=== PATIENT | female | born 1995 | race African-American/Black ===

== ENCOUNTER 2020-04-02 07:21 | Emergency (ER) | payer MEDICAID ==
[~2020-04-02] VITALS: Ht 162.6 cm; Wt 100.0 kg
[2020-04-02] MEDS ORDERED: ALBU6.7H9 IH (07:48)
[2020-04-02] MEDS ORDERED: PREDNISONE 20MG TABLET PO STA (07:55)
[2020-04-02] MEDS: ALBUTEROL (0.083%) 2.5MG/3ML NEB HHN SCH ×3 (08:30→09:53)
[2020-04-02] MEDS ORDERED: MAGNESIUM 2 G PREMIX 50 ML IV ONE (09:30)
[2020-04-02] MEDS ORDERED: SODIUM CHLORIDE 0.9% 500 ML IV ONE (09:30)
[2020-04-02 10:58] LABS: BASOPHILS % 0.4 % (0.0-2.0); EOSINOPHILS % 2.1 % (0.0-5.0); HEMATOCRIT. 40.3 % (36.0-48.0); HEMOGLOBIN. 12.7 g/dL (12.0-16.0); MEAN CORPUSCULAR HEMOGLOBIN 22.7 pg (28.0-32.0); MEAN CORPUSCULAR VOLUME 72.2 fL (81.0-99.0); MEAN PLATELET VOLUME 9.1 fl (7.4-10.4); MONOCYTES % 2.5 % (2.0-8.0); PLATELET 278 x1000/uL (130-400); RED BLOOD CELL COUNT 5.58 mill/uL (4.2-5.4); RED CELL DISTRIBUTION WIDTH 15.3 % (11.6-14.6)
[2020-04-02 11:06] LABS: CHLORIDE 112 mEq/L (98-107)
[2020-04-02] MEDS ORDERED: IPRATROPIUM/ALBUTEROL 0.5-3(2.5)MG/3ML NEB HHN ONE (12:15)
[2020-04-02] MEDS ORDERED: ACETAMINOPHEN 325MG TABLET PO PRN (14:15)
[2020-04-02] MEDS ORDERED: ONDANSETRON HCL 4MG/2ML INJ IV PRN (14:15)
[2020-04-02] MEDS ORDERED: METHYLPREDNISOLONE SOD SUCC 40 MG/ML VIAL IV SCH (14:15)
[2020-04-02 14:25] VITALS: BP 148/88
[2020-04-02] MEDS ORDERED: IPRATROPIUM/ALBUTEROL 0.5-3(2.5)MG/3ML NEB HHN SCH (16:00)
== END 2020-04-02 14:35 | disposition left against medical advice (07) ==
LOC: ER 07:41 → CANBEDREQ 14:32 → ER 14:35
DX: J45.901 Unspecified asthma with (acute) exacerbation (principal); R65.10 Systemic inflammatory response syndrome (SIRS) of non-infectious origin without acute organ dysfunction; E87.8 Other disorders of electrolyte and fluid balance, not elsewhere classified
CPT/HCPCS: 36415; 71045; 80048; 85025; 93005; 94640; 96365; 99285; J3475; J7040; J7512; Z7610